=== PATIENT | male | born 1975 | race Caucasian/White ===

== ENCOUNTER 2016-11-27 21:58 | Emergency (ER) | payer MEDICAID ==
[~2016-11-27] VITALS: Ht 172.7 cm; Wt 91.5 kg
[~2016-11-27 21:58] MED LIST: ATOR40TA68 PO; BENA40TA41 PO; HYDR50TA3 PO; LORA0.5T PO; METF500T4 PO; METO-407 PO; SERT50TA PO
[2016-11-27 22:02] VITALS: Ht 172.7 cm; Wt 91.5 kg
[2016-11-28] MEDS ORDERED: ASPIRIN 325 MG TAB PO STA (00:14)
[2016-11-28] MEDS ORDERED: NITROGLYCERIN (SL) 0.4 MG TAB SL ONE (00:30)
[2016-11-28 01:06] LABS: ADD SCAN DIFF NO
[2016-11-28 01:07] LABS: BASOPHILS % 0.5 % (0.0-2.0); EOSINOPHILS # 0.3 10^3/ul (0.0-0.5); EOSINOPHILS % 3.6 % (0.0-7.0); HEMATOCRIT 44.2 % (42.0-52.0); HEMOGLOBIN 15.7 g/dl (14.0-18.0); LYMPHOCYTES # 1.4 10^3/ul (0.8-2.9); LYMPHOCYTES % 18.7 % (15.0-51.0); MEAN CORPUSCULAR HEMOGLOBIN 35.8 pg (29.0-33.0); MEAN CORPUSCULAR HGB CONC 35.5 g/dl (32.0-37.0); MEAN CORPUSCULAR VOLUME 100.7 fl (82.0-101.0); MONOCYTE # 0.7 10^3/ul (0.3-0.9); MONOCYTES % 8.9 % (0.0-11.0); NEUTROPHIL # 5.1 10^3/ul (1.6-7.5); NEUTROPHILS % 67.8 % (39.0-77.0); PLATELET COUNT 205 10^3/UL (140-415); RED BLOOD COUNT 4.39 10^6/ul (4.70-6.10); WHITE BLOOD COUNT 7.6 10^3/ul (4.8-10.8)
[2016-11-28 01:17] LABS: INR 0.91; PROTIME 12.2 Sec (12.2-14.2)
[2016-11-28 01:18] LABS: PARTIAL THROMBOPLASTIN TIME 24.1 Sec (25.0-35.0)
--- NOTE | 2016-11-28 01:22 | RADRPT ---
PROCEDURE: CHEST - 1 VIEW CLINICAL INDICATION: 41-year-old male with chest pain. TECHNIQUE: A single frontal AP portable view of the chest was performed. The images were reviewed on a PACS workstation. COMPARISON: Chest x-ray August 05, 2016. FINDINGS: The cardiomediastinal silhouette has a normal appearance. There is no evidence for an infiltrate. There is no evidence for congestive heart failure. There is no evidence for pneumothorax. The osseou s structures are intact. IMPRESSION: No evidence for active cardiopulmonary disease. .Ja Kim MD, MD Date Time Electronically viewed and signed by .Ja Kim MD, on 11/28/2016 01:22 .Jose/
[2016-11-28 01:23] LABS: ANION GAP 16 (8-16); BLOOD UREA NITROGEN 13 mg/dl (7-20); CALCIUM 10.3 mg/dl (8.4-10.2); CARBON DIOXIDE 24 mmol/L (21-31); CHLORIDE 98 mmol/L (97-110); GLUCOSE 135 mg/dl (70-220); POTASSIUM 3.7 mmol/L (3.5-5.1); SODIUM 134 mmol/L (135-144)
[2016-11-28 02:15] LABS: TROPONIN-I < 0.012 ng/ml (0.00-0.12)
[2016-11-28] MEDS ORDERED: RANI150T9 PO (02:28)
[2016-11-28 02:37] VITALS: BP 132/96; PULSE 76; RESP 18; TEMP 98.3
--- NOTE | 2016-11-28 02:37 | ERD ---
ER Documentation Chief Complaint Date/Time DATE: 11/28/16 TIME: 02:32 Chief Complaint chest pain/htn since yesterday HPI This 41-year-old male presents to the emergency room with chest pain that's been going on for 2 days now. The chest pain is on his right side and is constant. Described as a sharp pain. There is no radiation. He denies shortness of breath, nausea and vomiting. He does have a history oF diabetes hypertension and hypercholesterolemia. He does have a history of acid reflux but has not taken anything for some time. ROS All systems reviewed and are negative except as per history of present illness. Medications Home Meds Active Scripts Ranitidine Hcl* (Zantac*) 150 Mg Tablet, 150 MG PO BID Y for EPIGASTRIC PAIN, # 30 TAB Prov:RAMONITA TATUM DO 11/28/16 Lorazepam* (Lorazepam*) 0.5 Mg Tablet, 0.5 MG PO BID Y for CONTROL WITHDRAWAL SYMPTOMS, #15 TAB Prov:MINA BATISTA MD 06/04/16 Sertraline Hcl* (Zoloft*) 50 Mg Tablet, 50 MG PO DAILY, #30 TAB Prov:MINA BATISTA MD 06/04/16 Reported Medications Benazepril Hcl* (Benazepril Hcl*) 40 Mg Tablet, 40 MG PO DAILY, #30 TAB 06/04/16 Metoprolol Tartrate* (Lopressor*) 100 Mg Tablet, 100 MG PO DAILY, #60 TAB 06/04/16 Hydrochlorothiazide* (Hydrochlorothiazide*) 50 Mg Tab, 50 MG PO DAILY, #30 TAB 06/04/16 Atorvastatin* (Atorvastatin*) 40 Mg Tablet, 40 MG PO QHS, #30 TAB 06/04/16 Metformin Hcl* (Metformin Hcl*) 500 Mg Tablet, 500 MG PO WITH BREAKFAST DINNE, # 60 TAB 06/04/16 Allergies Allergies: Coded Allergies: Penicillins (Verified Allergy, Mild, 11/27/16) PMhx/Soc History of Surgery: No Anesthesia Reaction: No Hx Neurological Disorder: No Hx Respiratory Disorders: No Hx Cardiac Disorders: Yes (HTN) Hx Psychiatric Problems: Yes (etoh abuse) Hx Miscellaneous Medical Probl: Yes (DM, high cholesterol) Hx Alcohol Use: Yes (6 BEERS A DAY ( states more)) Hx Substance Use: No Hx Tobacco Use: No Smoking Status: Never smoker Physical Exam Vitals Vital Signs Date Time Temp Pulse Resp B/P Pulse Ox O2 Delivery O2 Flow Rate FiO2 11/28/16 01:00 98.2 78 20 139/96 100 Room Air 11/28/16 00:37 Nasal Cannula 11/28/16 00:37 98.5 77 20 142/102 100 Room Air 11/27/16 22:02 98.7 91 20 180/110 98 Physical Exam Const: [] No distress Head: Atraumatic Eyes: Normal Conjunctiva ENT: Normal External Ears, Nose and Mouth. Neck: Full range of motion..~ No meningismus. Resp: Clear to auscultation bilaterally Cardio: Regular rate and rhythm, no murmurs Abd: Soft, non tender, non distended. Normal bowel sounds Skin: No petechiae or rashes Back: No midline or flank tenderness Ext: No cyanosis, or edema Neur: Awake and alert and oriented 3, no focal deficits. Psych: Normal Mood and Affect Result Diagram: 11/28/160 11/28/16 0050 Results 24 hrs Laboratory Tests Test 11/28/16 00:50 White Blood Count 7.610^3/ul Red Blood Count 4.3910^6/ul Hemoglobin 15.7g/dl Hematocrit 44.2% Mean Corpuscular Volume 100.7fl Mean Corpuscular Hemoglobin 35.8pg Mean Corpuscular Hemoglobin Concent 35.5g/dl Red Cell Distribution Width 13.0% Platelet Count 92943^3/UL Mean Platelet Volume 10.0fl Neutrophils % 67.8% Lymphocytes % 18.7% Monocytes % 8.9% Eosinophils % 3.6% Basophils % 0.5% Nucleated Red Blood Cells % 0.0/100WBC Neutrophils # 5.110^3/ul Lymphocytes # 1.410^3/ul Monocytes # 0.710^3/ul Eosinophils # 0.310^3/ul Basophils # 0.010^3/ul Nucleated Red Blood Cells # 0.010^3/ul Prothrombin Time 12.2Sec Prothrombin Time Ratio 1.0 INR International Normalized Ratio 0.91 Activated Partial Thromboplast Time 24.1Sec Sodium Level 134mmol/L Potassium Level 3.7mmol/L Chloride Level 98mmol/L Carbon Dioxide Level 24mmol/L Anion Gap 16 Blood Urea Nitrogen 13mg/dl Creatinine 1.00mg/dl Glucose Level 135mg/dl Calcium Level 10.3mg/dl Troponin I < 0.012ng/ml Current Medications Medications (Trade) Dose Ordered Sig/Chuyita Route PRN Reason Start Time Stop Time Status Last Admin Dose Admin Aspirin (Aspirin) 325 mg ONCE STAT PO 11/28/16 00:14 11/28/16 00:21 DC 11/28/16 00:57 Nitroglycerin (Nitroglycerin (Sl Tab) 0.4 Mg) 1 tab ONCE ONCE SL 11/28/16 00:30 11/28/16 00:31 DC 11/28/16 00:57 Procedures/MDM Atypical chest pain and the patient is actually have risk factors in spite of his young age. Chest pain has been present for 2 days and has not given worse anytime recently. He does have a nonischemic EKG as well as negative troponin more than 2 dozen hours of the same symptoms. Son likely has had any coronary event. His pain was relieved in the emergency room and nitroglycerin. He is also given aspirin tab. He was virtually asymptomatic emergency room for most of his course. Going to discharge with primary care instructions to obtain an echocardiogram. Explained this to the patient he seems very willing to get the echocardiogram soon as possible. Also discharging with Zantac and return precautions to the ER. EKG interpretation: Normal sinus rhythm rate of 87, normal axis, no ST or T- wave changes concerning for acute ischemia, normal intervals. Normal anesthesia associate interpretation: Normal sinus rhythm without arrhythmia Chest x-ray interpretation: I see no acute process. I see no widened mediastinum , no pneumothorax, no infiltrates, no fractures. Departure Diagnosis: Primary Impression: Chest pain Condition: Stable Patient Instructions: Chest Pain, Uncertain Cause Referrals: [facility] (PCP) Additional Instructions: Llame al doctor NGA y raul joycelyn DOMINGO PARA DENTRO DE 1-2 MENSAH. Consigue un referral para un ECHOCARDIOGRAMA. Dgale a la secretaria que nosotros le instruimos hacer esta domingo.Avise o llame si chang condicin se empeora antes de la domingo. Regresa aqui si peor o no mejor. RAMONITA TATUM DO Nov 28, 2016 02:37
== END 2016-11-28 02:38 | disposition home or self-care (01) ==
LOC: E/R 21:58
DX: R07.9 Chest pain, unspecified (principal); I10 Essential (primary) hypertension; E11.9 Type 2 diabetes mellitus without complications; Z79.84 Long term (current) use of oral hypoglycemic drugs
CPT/HCPCS: 36415; 71010; 80048; 84484; 85025; 85610; 85730; 93005; Z7502; Z7610